=== PATIENT | male | born 1975 | race Two or more races ===

== ENCOUNTER → 2017-01-25 | Outpatient (CLI) | payer OTHER ==
--- NOTE | ~2017-01-25 | US6 ---
[facility] A Service of [facility] RADIOLOGY TEXT RESULTS PATIENT: ARMAND MONTEIRO LOCATION: [place] : 71 UNIT #: [id number] AGE: [address]: Jesus Reece MD SEX: M ORDER DR: [id number] [address] [address] [id number] O MR#: [id number] Acc #: [id number] NAME: ARMAND MONTEIRO : 1975 SEX: M STUDY DATE/TIME: 01/25/2017 9:45 UNIT: CGUS ROOM: STUDY DESCRIPTION: US Abdominal Limited Attending Physician: Jesus Reece M.D. Referring Physician: Jesus Reece M.D. Ordering Physician: Jesus Reece M.D. Primary Care Physician: [facility] MEDICAL IMAGING REPORT This report is preliminary unless electronic signature is present EXAM Right upper quadrant abdominal ultrasound INDICATION Elevated liver enzyme levels. PROCEDURE Zhou-scale and Doppler imaging right upper quadrant of the abdomen. COMPARISON None. FINDINGS Visualized portions of pancreas are unremarkable. The liver shows increased echotexture compared with the right kidney. No liver mass on submitted images. Liver measures 13.7 cm. Common duct measures 3 mm. Unremarkable gallbladder. Right kidney is normal. IMPRESSION Hepatic steatosis. Otherwise negative right upper quadrant ultrasound. Dictated by... Cassius Lin M.D. THIS IS AN ELECTRONICALLY VERIFIED REPORT Cassius Lin M.D. at 01/29/2017 7:02 AM DAVEY/liz TD: 01/25/2017 13:18 JOB #: [id number] MEDICAL IMAGING REPORT [facility] A Service [facility] RADIOLOGY TEXT RESULTS PATIENT: ARMAND MONTEIRO LOCATION: [place] : 71 UNIT #: [id number] AGE: [address]: Jesus Reece MD SEX: M ORDER DR: COPY
[2017-01-25 09:49] LABS: HEMATOCRIT 48.9 % (38.0-50.0); HEMOGLOBIN 17.1 gm/dL (13.0-16.0); MEAN CELL VOLUME 90.5 FL (83-96); MEAN CORPUSCULAR HEMOGLOBIN 31.7 PG (28-34); MEAN PLATELET VOLUME 10.2 FL (6.5-11.5); RED BLOOD COUNT 5.4 X10e (3.90-5.60)
[2017-01-25 10:20] LABS: ALBUMIN SERUM 4.5 g/dL (3.5-5.0); ALKALINE PHOSPHATASE 93 U/L (32-92); ALT (SGPT) 62 U/L (10-40); AST (SGOT) 40 U/L (10-42); BILIRUBIN,TOTAL 0.6 mg/dL (0.2-2.0); BLOOD UREA NITROGEN 10 mg/dL (9-23); BUN/CREATININE RATIO 11.11; CARBON DIOXIDE 28 mmol/L (22-31); CHLORIDE 104 mmol/L (100-111); CREATININE SERUM 0.9 mg/dL (0.6-1.4); GLOM FILT RATE Estimated ABOVE60 mL/min (>60); GLUCOSE FASTING 98 mg/dL (70-110); POTASSIUM 4.1 mmol/L (3.5-5.1); PROTEIN TOTAL SERUM 7.6 g/dL (6.0-8.3); SODIUM 135 mmol/L (135-145); TRANSFERRIN 342 mg/dL (180-329)
[2017-01-28 13:48] LABS: ANA SCREEN Negative (Negative); MITOCHONDRIA M2 AB (IGG) <=20.0 U (<=20.0)
== END | disposition home or self-care (01) ==
LOC: CGUS 08:48
PROVIDERS: Internal Medicine
DX: R79.89 Other specified abnormal findings of blood chemistry (principal); K76.0 Fatty (change of) liver, not elsewhere classified
CPT/HCPCS: 36415; 76705; 80053; 82728; 83520; 83540; 84466; 85027; 86038; 86039